=== PATIENT | female | born 1980 | race Caucasian/White ===

== ENCOUNTER 2020-02-02 22:20 | Inpatient (IN) | payer BC, OTHER ==
[~2020-02-02 22:20] MED LIST: Iopamidol-370 76% 500 ML 1 ML ONE
[2020-02-02 23:10] LABS: PTT 26.2 sec (22.9-36.1); Prothrombin Time 13.6 sec (12.0-14.7)
[2020-02-02 23:11] LABS: D-Dimer Test 2.54 *mcg/mL (0.27-0.43)
[2020-02-02 23:13] LABS: BHCG - Serum Negative (NEGATIVE); Pregs Control Background? CLEAR/WHITE (CLR/WHITE); Pregs Control Bar Appear? YES (CONTROL BAR)
[2020-02-02 23:25] LABS: Hemoglobin 10.6 g/dL (12.0-16.0); Mean Corpuscular HGB CONC 32.9 g/dL (32.0-36.0); Mean Corpuscular Hemoglobin 25.7 pg (27.0-31.0); Mean Corpuscular Volume 77.9 fL (78.0-98.0); Mean Platelet Volume 7.7 fL (7.4-10.4); Platelet Count 251 thou/uL (130-400); RBC Distribution Width 13.8 % (11.5-14.5); Red Blood Cell (RBC) Count 4.14 mill/uL (4.20-5.40); White Blood Cell (WBC) Count 11.2 thou/uL (4.8-10.8)
[2020-02-02 23:25] LABS: ALT (SGPT) 17 U/L (8-55); AST (SGOT) 34 U/L (5-34); Albumin 3.7 g/dL (3.5-5.0); Alkaline Phosphatase 121 U/L (40-110); Anion Gap 17 mmol/L (10-20); BUN (Urea Nitrogen) 18 mg/dL (7.0-18.7); Bilirubin, Total 0.4 mg/dL (0.2-1.2); CK (CPK) 363 U/L (29-168); Calc. Creatinine Clearance 0 mL/min (70-130); Calcium 8.2 mg/dL (7.8-10.44); Carbon Dioxide 17 mmol/L (22-29); Chloride 102 mmol/L (98-107); Estimated GFR-MDRD 61; Globulin 3.4 g/dL (2.4-3.5); Glucose 107 mg/dL (70-105); Lipase 18 U/L (8-78); Potassium 4.6 mmol/L (3.5-5.1); Protein, Total 7.1 g/dL (6.0-8.3); Sodium 131 mmol/L (136-145)
[2020-02-02 23:43] LABS: CKMB 6.3 ng/mL (0-6.6)
[2020-02-02 23:51] LABS: Band 33 % (5-11); Lymphocytes 7 % (21-51); MDiff Complete? YES; Monocytes 7 % (0-10); Neutrophil 53 % (42-75)
[2020-02-03] MEDS ORDERED: cefTRIAXone\\ROCEPHIN 2 GM VIAL ONE (00:24)
[2020-02-03] MEDS ORDERED: Aspirin Chewable 81 MG TAB ONE (00:24)
[2020-02-03] MEDS ORDERED: Dexamethasone 10 MG/ML VIAL ONE (00:26)
[2020-02-03] MEDS ORDERED: Azithromycin 500 MG VIAL ONE (00:26)
[2020-02-03] MEDS ORDERED: Sodium Chloride 0.9% 1,000 ML IV SCH (01:00)
[2020-02-03] MEDS ORDERED: Ondansetron PF 4 MG/2 ML Vial IVP PRN (01:00)
[2020-02-03] MEDS ORDERED: Ondansetron ODT 4 MG TAB SL PRN (01:00)
[2020-02-03 03:05] LABS: Troponin I 0.012 ng/mL (< 0.028)
[2020-02-03 05:28] LABS: Troponin I Less than 0.010 ng/mL (< 0.028)
--- NOTE | 2020-02-03 06:20 | RAD ---
PORTABLE CHEST: Date: 02/02/2020 HISTORY: Dyspnea. No comparison. FINDINGS: There is cardiomegaly and mild vascular engorgement. Question hazy infiltrate in the right mid lung/p eriareolar region. No consolidation. No effusion. IMPRESSION: Cardiomegaly and mild vascular engorgement which is prominent for age. There is evidence of hazy infi ltrate in the right mid lung field. POS: AGW
--- NOTE | 2020-02-03 06:29 | CT ---
CTA CHEST: Date: 02/02/2020 Axial tomograms obtained following angio protocol with multiplanar reconstruction and 3D postprocessi ng. INDICATION: Shortness of breath. Cough. Hemoptysis. FINDINGS: Pulmonary arteries show adequate opacification. There is no evidence of pulmonary embolus. Thoracic a kay is unremarkable. Nonspecific mediastinal and hilar adenopathy. Review of the lung zayas show hazy ground-glass infiltrates in the right upper lobe and right middle lobe. There are more confluent dense infiltrates in both posterior lower lobes. Findings are consist ent with diffuse COVID pneumonia. IMPRESSION: 1. No evidence of pulmonary embolus. 2. Bilateral lung infiltrates consistent with COVID pneumonia. POS: AGW
[2020-02-03] MEDS: Ascorbic Acid 500 mg Chewable Tablet PO SCH (07:58)
[2020-02-03] MEDS: Zinc Sulfate 220 MG CAP PO SCH (07:59)
[2020-02-03] MEDS ORDERED: Aspirin 325 MG TAB PO SCH (09:00)
[2020-02-03] MEDS ORDERED: Dexamethasone 4 mg/ml Vial SLOW IVP SCH (09:00)
[2020-02-03] MEDS ORDERED: FLU VACC QS2020-21(6MOS UP)/PF 60 MCG/0.5 ML SYRINGE IM ONE (09:00)
--- NOTE | 2020-02-03 10:46 | PDOC.HHP ---
Hospitalist HPI - History of Present Illness Shortness of breath History of Present Illness: Ms. Dorado is a 39-year-old female with a past medical history of obstructive sleep apnea, hypertension, anxiety/depression, fibromyalgia who presents for fever, cough, and shortness of breath. Patient reports that day prior to admission she noticed headache and sore throat. Morning of admission she developed all over body aches. Later she became short of breath with a dry cough and temperature taken at home of 102.4. Patient also reports that she measured her pulse ox at home which was 84% on room air. She also has coughed up some pink-tinged sputum, however this was after taking red ibuprofen tablets and patient is unsure if this is dye or blood. Patient denies any known Covid exposures, but did just start a new job where one of her coworkers had a "Covid scare". Patient denies nausea or vomiting, but does report 3 episodes of diarrhea today. Patient denies any chest pain, palpitations. Denies any abdominal pain. Denies any numbness, weakness, paresthesias. Denies dizziness, lightheadedness, changes in vision. In emergency room initial vital signs 128/79, 71, 20, 97% on 2 L nasal cannula. EKG showed normal sinus rhythm with LVH. Initial troponin indeterminate at 0.040 BNP 442. Chest x-ray showed a question of a right middle lobe hazy infiltrate and cardiomegaly. D-dimer elevated at 2.54. CTA was done which was negative for any pulmonary embolism, but did show bilateral infiltrates and groundglass opacities consistent with Covid pneumonia. BUN/CR 18/1.00. White blood cell count 11.2. H/H 10.6/32.3. Sodium 131, potassium 4.6. Patient received aspirin, Decadron, ceftriaxone, azithromycin, 1 L of normal saline. Hospitalist ROS - Review of Systems Constitutional: reports: fever, chills, malaise, other (Body aches) Eyes: denies: pain, vision change, conjunctivae inflammation, eyelid inflammation, redness, other ENT: reports: nose congestion, throat pain Respiratory: reports: cough, dry, shortness of breath, hemoptysis Cardiovascular: denies: chest pain, palpitations, orthopnea, paroxysmal noc. dy spnea, edema, light headedness, other Gastrointestinal: reports: diarrhea. denies: nausea, vomiting, abdominal pain, constipation, melena, hematochezia, other Genitourinary: denies: dysuria, frequency, incontinence, hematuria, retention, other Musculoskeletal: reports: other (Body aches). denies: neck pain, shoulder pain, arm pain, back pain, hand pain, leg pain, foot pain Skin: denies: rash, lesions, zahira, bruising, other Neurological: denies: weakness, numbness, incoordination, change in speech, confusion, seizures, other - Medication Medications: Home medications include Pantoprazole BuSpar Doxepin Venlafaxine Seroquel Metoprolol Gabapentin No known allergies Hospitalist History - Past Medical History Other Medical History: Past medical history includes Obstructive sleep apnea Hypertension Anxiety/depression Fibromyalgia - Past Surgical History Other Surgical History: Past surgical history includes x3 LAP-BAND Gastric bypass Breast reduction\\ Circumferential tummy tuck Appendectomy Tubal ligation - Family History Other Family History: Denies family history of heart disease, cancer, diabetes - Social History Smoking Status: Never smoker Alcohol: reports: None Drugs: reports: none Living Situation: With Family Activity level: independent ambulation - Exam General Appearance: NAD, awake alert Eye: PERRL, anicteric sclera ENT: normocephalic atraumatic, no oropharyngeal lesions, moist mucosa Neck: supple, symmetric, no JVD, no thyromegaly, no lymphadenopathy, no carotid bruit Heart: RRR, no murmur, no gallops, no rubs, normal peripheral pulses Respiratory: normal chest expansion, no tachypnea, rhonchi Gastrointestinal: soft, non-tender, non-distended, normal bowel sounds, no palpable masses, no hepatomegaly, no splenomegaly, no bruit Extremities: no cyanosis, no clubbing, no edema Skin: normal turgor, no lesions, no rashes Neurological: normal sensation to touch, no weakness, no focal deficits, no new deficit Musculoskeletal: normal tone, normal strength, no muscle wasting Psychiatric: normal affect, normal behavior, A&O x 3 Hospitalist Results - Labs Result Diagrams: 02/02/20 22:44 02/02/20 22:43 Lab results: WBC 11.2 thou/uL (4.8-10.8) H 02/02/20 22:44 Hgb 10.6 g/dL (12.0-16.0) L 02/02/20 22:44 Hct 32.3 % (36.0-47.0) L 02/02/20 22:44 MCV 77.9 fL (78.0-98.0) L 02/02/20 22:44 Plt Count 251 thou/uL (130-400) 02/02/20 22:44 Band Neuts % (Manual) 33 % (5-11) H 02/02/20 22:44 Sodium 131 mmol/L (136-145) L 02/02/20 22:43 Potassium 4.6 mmol/L (3.5-5.1) 02/02/20 22:43 Chloride 102 mmol/L (98-107) 02/02/20 22:43 Carbon Dioxide 17 mmol/L (22-29) L 02/02/20 22:43 BUN 18 mg/dL (7.0-18.7) 02/02/20 22:43 Creatinine 1.00 mg/dL (0.6-1.1) 02/02/20 22:43 Glucose 107 mg/dL (70-105) H 02/02/20 22:43 Calcium 8.2 mg/dL (7.8-10.44) 02/02/20 22:43 Total Bilirubin 0.4 mg/dL (0.2-1.2) 02/02/20 22:43 AST 34 U/L (5-34) 02/02/20 22:43 ALT 17 U/L (8-55) 02/02/20 22:43 Alkaline Phosphatase 121 U/L (40-110) H 02/02/20 22:43 Creatine Kinase 363 U/L (29-168) H 02/02/20 22:43 CK-MB (CK-2) 6.3 ng/mL (0-6.6) 02/02/20 22:43 Troponin I Less than 0.010 ng/mL (< 0.028) 02/03/20 04:42 B-Natriuretic Peptide 442.0 pg/mL (0-100) H 02/02/20 22:43 Serum Total Protein 7.1 g/dL (6.0-8.3) 02/02/20 22:43 Albumin 3.7 g/dL (3.5-5.0) 02/02/20 22:43 Lipase 18 U/L (8-78) 02/02/20 22:43 Hospitalist H&P A/P - Plan Plan: Pneumonia 39-year-old female with 2 days of cough, fevers, worsening shortness of breath found to have bilateral groundglass opacities on CT scan consistent with COVID- 19 pneumonia. Patient hypoxic to 84% on room air at home. Now saturating 97% on 2 L. Febrile to 102.9. WBC 11.2. D-dimer was elevated to 2.54, CTA showed no evidence of pulmonary embolism, but did show findings consistent with COVID- 19 pneumonia. Covid test pending. Of note patient also reports episode of bloody sputum, however this was after taking red ibuprofen and patient unsure if dye versus blood. In the ED patient received Decadron, ceftriaxone, azithromycin. High suspicion for COVID-19 pneumonia. Plan Covid pending Continue Decadron Continue CAP coverage with ceftriaxone, azithromycin Trend inflammatory markers as needed Robitussin as needed cough Supplemental oxygen, continuous pulse ox Tylenol as needed fever, body aches We will consider remdesivir, if PCR testing positive Hemoptysis Patient reports episode of hemoptysis, however this is after taking red ibuprofen tablets and patient is unsure if this was just her coughing of the dye versus blood. CT a negative for pulmonary embolism. On EKG LVH noted, and ch est x-ray also showed cardiomegaly. Patient does not appear to be fluid overloaded on exam. Suspect likely from dye vs inflammation 2/2 COVID-19 pneumonia however will pursue echocardiogram to evaluate for congestive heart failure. Patient denies any travel outside the country. Plan Quantiferon test Echocardiogram Continuous pulse ox monitoring, supplemental oxygen Elevated troponin Initial troponin indeterminate at 0.040. Repeat troponins 0.012, 0.010. Patient denies chest pain. EKG with no ischemic changes. Likely small troponin leak in setting of infection, also commonly seen in COVID-19 pneumonia. We will continue to monitor for symptoms and keep on telemetry. Plan Monitor for symptoms Telemetry ANGEL We will continue home CPAP machine at night. Hypertension We will continue home metoprolol Anxiety/depression History of anxiety depression on multiple medications. Patient currently denies SI/HI. We will continue home BuSpar, doxepin, venlafaxine, Seroquel, gabapenti n. Plan Continue BuSpar, doxepin Continue venlafaxine, Seroquel GERD Continue home pantoprazole DVT prophylaxis Lovejcx Full code, MDM patient's Case discussed with attending physician Dr. Lindsay
[2020-02-03] MEDS ORDERED: Acetaminophen 325 MG TAB PO PRN (11:28)
[2020-02-03 13:01] LABS: SARS-CoV-2 MS2 Positive; SARS-CoV-2 N Gene Negative; SARS-CoV-2 S Gene Negative; SARS-CoV-2 by NAA Not Detected (NotDetected); SARS-CoV-2 orf1ab Negative
[2020-02-03 18:57] LABS: SARS-CoV-2 IgG Ab Non-Reactive (NonReactive); SARS-CoV-2 IgG Index 0.01 S/CO (< 1.40)
[2020-02-03] MEDS: Gabapentin 400 MG CAP PO SCH (20:55)
[2020-02-03] MEDS: Doxepin HCl 25 MG CAP PO SCH (20:56)
[2020-02-03] MEDS: busPIRone HCl 10 MG TAB PO SCH (20:56)
[2020-02-03] MEDS: Venlafaxine HCl XR 75 MG CAP PO SCH (20:56)
[2020-02-04 04:52] LABS: #Lymphocytes 1.2 thou/uL (1.20-3.40); #Monocytes 0.7 thou/uL (0.11-0.59); #Neutrophils 13.8 thou/uL (1.40-6.50); %Lymphocytes 7.8 % (21.0-51.0); %Monocytes 4.2 % (0.0-10.0); Hemoglobin 9.4 g/dL (12.0-16.0); Mean Corpuscular HGB CONC 32.4 g/dL (32.0-36.0); Mean Corpuscular Hemoglobin 25.8 pg (27.0-31.0); Mean Corpuscular Volume 79.5 fL (78.0-98.0); Mean Platelet Volume 7.8 fL (7.4-10.4); Platelet Count 253 thou/uL (130-400); RBC Distribution Width 14.3 % (11.5-14.5); Red Blood Cell (RBC) Count 3.64 mill/uL (4.20-5.40); White Blood Cell (WBC) Count 15.7 thou/uL (4.8-10.8)
[2020-02-04 05:18] LABS: Anion Gap 10 mmol/L (10-20); BUN (Urea Nitrogen) 12 mg/dL (7.0-18.7); Calc. Creatinine Clearance 225 mL/min (70-130); Calcium 8.2 mg/dL (7.8-10.44); Carbon Dioxide 23 mmol/L (22-29); Chloride 109 mmol/L (98-107); Estimated GFR-MDRD Greater than 90; Glucose 120 mg/dL (70-105); Potassium 3.8 mmol/L (3.5-5.1); Sodium 138 mmol/L (136-145)
[2020-02-04] MEDS: Enoxaparin Sodium 40 MG/0.4 ML SYRINGE SC SCH (07:49)
[2020-02-04] MEDS: Pantoprazole 40 MG GRANULES PACKET PO SCH (07:50)
[2020-02-04] MEDS: busPIRone HCl 10 MG TAB PO SCH ×2 (07:51→20:38)
[2020-02-04] MEDS: Gabapentin 400 MG CAP PO SCH ×3 (07:51→20:37)
[2020-02-04] MEDS: Ascorbic Acid 500 mg Chewable Tablet PO SCH (07:52)
[2020-02-04] MEDS: Zinc Sulfate 220 MG CAP PO SCH (07:52)
[2020-02-04] MEDS: Dexamethasone 4 MG TAB PO SCH (07:52)
--- NOTE | 2020-02-04 08:44 | PDOC.HOSPP ---
- Subjective Encounter Date: 02/04/20 Encounter Time: 07:00 Subjective: No overnight events. Patient reports that her breathing feels the same as yesterday. Still on 2 L nasal cannula. Patient does report however that she has had additional episodes of hemoptysis. She describes the sputum as white and streaked pink to red. She denies any chest pain, palpitations, dizziness. Denies any changes in vision, numbness/weakness. Is using CPAP machine at night comfortably. Chart and medications reviewed - Objective Vital Signs & Weight: Vital Signs (12 hours) Temp Pulse Resp BP Pulse Ox 02/04/20 08:05 97.7 F 69 20 124/66 100 02/04/20 04:35 97.8 F 73 20 125/66 95 02/04/20 01:56 98 Weight Weight 283 lb 12.8 oz I&O: 02/03/20 02/04/20 02/05/20 06:59 06:59 06:59 Intake Total 0 Balance 192 Result Diagrams: 02/04/20 04:23 02/04/20 04:23 Hospitalist ROS - Review of Systems Constitutional: reports: fever, weakness, malaise Eyes: denies: vision change ENT: reports: nose congestion, throat pain Respiratory: reports: cough, dry, shortness of breath, hemoptysis Cardiovascular: denies: chest pain, palpitations, orthopnea, light headedness Gastrointestinal: denies: nausea, vomiting, abdominal pain, diarrhea Genitourinary: denies: dysuria Skin: denies: rash, lesions Neurological: denies: weakness, numbness - Medication Medications: Active Medications Generic Name Dose Route Start Last Admin Trade Name David PRN Reason Stop Dose Admin Acetaminophen 650 mg 02/03/20 11:28 02/03/20 15:30 Acetaminophen 325 Mg Tab PO 650 mg Q4H PRN Administration Headache/Fever/Mild Pain (1-3) Ascorbic Acid 1,000 mg 02/03/20 09:00 02/04/20 07:52 Ascorbic Acid 500 Mg Chewable Tablet PO 1,000 mg DAILY RENETTA Administration Buspirone HCl 20 mg 02/03/20 21:00 02/04/20 07:51 Buspirone Hcl 10 Mg Tab PO 20 mg BID RENETTA Administration Dexamethasone 6 mg 02/04/20 08:00 02/04/20 07:52 Dexamethasone 4 Mg Tab PO 6 mg QAM-WM RENETTA Administration Doxepin HCl 150 mg 02/03/20 21:00 02/03/20 20:56 Doxepin Hcl 25 Mg Cap PO 150 mg HS RENETTA Administration Enoxaparin Sodium 40 mg 02/04/20 09:00 02/04/20 07:49 Enoxaparin Sodium 40 Mg/0.4 Ml Syringe SC 40 mg 0900 RENETTA Administration Gabapentin 1,200 mg 02/03/20 21:00 02/04/20 07:51 Gabapentin 400 Mg Cap PO 1,200 mg TID RENETTA Administration Metoprolol Succinate 100 mg 02/03/20 21:00 02/03/20 20:56 Metoprolol Succinate Xl 100 Mg Tab PO 100 mg HS RENETTA Administration Pantoprazole Sodium 40 mg 02/04/20 09:00 02/04/20 07:50 Pantoprazole 40 Mg Granules Packet PO 40 mg DAILY RENETTA Administration Quetiapine Fumarate 200 mg 02/03/20 21:00 02/03/20 20:56 Quetiapine Fumarate 200 Mg Tab PO 200 mg HS RENETTA Administration Sodium Chloride 10 ml 02/03/20 09:00 02/04/20 07:53 Flush - Normal Saline 10 Ml Syringe IVF 10 ml Q12HR RENETTA Administration Venlafaxine HCl 75 mg 02/03/20 21:00 02/03/20 20:56 Venlafaxine Hcl Xr 75 Mg Cap PO 75 mg TID RENETTA Administration Zinc Sulfate 220 mg 02/03/20 09:00 02/04/20 07:52 Zinc Sulfate 220 Mg Cap PO 220 mg DAILY RENETTA Administration - Exam General Appearance: NAD, awake alert Eye: anicteric sclera ENT: normocephalic atraumatic, no oropharyngeal lesions Neck: supple, symmetric, no JVD Heart: RRR, no murmur, no gallops, no rubs, normal peripheral pulses Respiratory: no tachypnea, rhonchi Gastrointestinal: soft, non-tender, non-distended, normal bowel sounds, no palpable masses, no hepatomegaly, no splenomegaly, no bruit Extremities: no cyanosis, no clubbing, no edema Skin: normal turgor, no lesions, no rashes Neurological: normal sensation to touch, no weakness, no focal deficits Musculoskeletal: normal tone, normal strength, no muscle wasting Psychiatric: normal affect, normal behavior, A&O x 3 Hosp A/P - Plan Pneumonia 39-year-old female with 2 days of cough, fevers, worsening shortness of breath found to have bilateral groundglass opacities on CT scan consistent with COVID- 19 pneumonia. Patient hypoxic to 84% on room air at home. Now saturating 97% on 2 L. Febrile to 102.9. WBC 11.2. D-dimer was elevated to 2.54, CTA showed no evidence of pulmonary embolism, but did show findings consistent with COVID- 19 pneumonia. Covid test pending. Of note patient also reports episode of bloody sputum, however this was after taking red ibuprofen and patient unsure if dye versus blood. In the ED patient received Decadron, ceftriaxone, azithromycin. High suspicion for COVID-19 pneumonia, despite initial COVID swab being negative. Will repeat swab. On 02/03, patient reports repeated episodes of hemoptysis, WBC increasing to 15.7. Will continue CAP coverage and obtain sputum culture. Plan Repeat COVID Continue Decadron Continue CAP coverage with ceftriaxone, azithromycin Trend inflammatory markers as needed Robitussin as needed cough Supplemental oxygen, continuous pulse ox Tylenol as needed fever, body aches -Consider remdesivir if COVID testing positive -ID consult, recs appreciated Hemoptysis Patient reports episode of hemoptysis initially patient thought to be from red dyed ibuprofen tablets, however has had repeated episodes since admission. CT a negative for pulmonary embolism. On EKG LVH noted, and chest x-ray also showed cardiomegaly. Patient does not appear to be fluid overloaded on exam. Suspect likely inflammation 2/2 COVID-19 pneumonia however will pursue echocardiogram to evaluate for congestive heart failure. Patient denies any travel outside the country, but will send for TB quaniferon testing. Plan Quantiferon test pending Echocardiogram Continuous pulse ox monitoring, supplemental oxygen Elevated troponin Initial troponin indeterminate at 0.040. Repeat troponins 0.012, 0.010. Patient denies chest pain. EKG with no ischemic changes. Likely small troponin leak in setting of infection, also commonly seenas an inflammatory marker in COVID-19 pneumonia. We will continue to monitor for symptoms and keep on telemetry. Plan Monitor for symptoms Telemetry ANGEL We will continue home CPAP machine at night. Hypertension We will continue home metoprolol. Anxiety/depression History of anxiety depression on multiple medications. Patient currently denies SI/HI. We will continue home BuSpar, doxepin, venlafaxine, Seroquel, gabapentin. Plan Continue BuSpar, doxepin Continue venlafaxine, Seroquel GERD Continue home pantoprazole. DVT prophylaxis Lovenox Full code, MDM patient's Case discussed with attending physician Dr. Lindsay
[2020-02-04] MEDS: Venlafaxine HCl XR 75 MG CAP PO SCH ×3 (08:48→20:37)
[2020-02-04] MEDS: Azithromycin 250 MG TAB PO SCH (08:48)
[2020-02-04] MEDS: cefTRIAXone\\ROCEPHIN 1 GM in Sodium Chloride 0.9% 100 ML IVPB SCH (08:48)
[2020-02-04] MEDS ORDERED: Azithromycin 200 MG/5 ML Oral Suspension PO SCH (09:00)
[2020-02-04] MEDS: Guaifenesin DM 100-10/5 ML UDCUP PO PRN (12:08)
[2020-02-04 17:53] LABS: SARS-CoV-2 MS2 Positive; SARS-CoV-2 N Gene Negative; SARS-CoV-2 S Gene Negative; SARS-CoV-2 by NAA Not Detected (NotDetected); SARS-CoV-2 orf1ab Negative
[2020-02-04] MEDS: Doxepin HCl 25 MG CAP PO SCH (20:37)
[2020-02-05 05:56] LABS: #Lymphocytes 2.9 thou/uL (1.20-3.40); #Monocytes 0.7 thou/uL (0.11-0.59); #Neutrophils 12.3 thou/uL (1.40-6.50); %Basophils 0.2 % (0.0-1.0); %Eosinophils 0.1 % (0.0-10.0); %Lymphocytes 18.3 % (21.0-51.0); %Monocytes 4.6 % (0.0-10.0); %Neutrophils 76.8 % (42.0-75.0); Hemoglobin 9.4 g/dL (12.0-16.0); Mean Corpuscular HGB CONC 32.7 g/dL (32.0-36.0); Mean Corpuscular Hemoglobin 25.9 pg (27.0-31.0); Mean Corpuscular Volume 79.1 fL (78.0-98.0); Mean Platelet Volume 7.6 fL (7.4-10.4); Platelet Count 305 thou/uL (130-400); RBC Distribution Width 14.6 % (11.5-14.5); Red Blood Cell (RBC) Count 3.64 mill/uL (4.20-5.40)
[2020-02-05 06:23] LABS: Anion Gap 14 mmol/L (10-20); BUN (Urea Nitrogen) 15 mg/dL (7.0-18.7); Calc. Creatinine Clearance 219 mL/min (70-130); Carbon Dioxide 21 mmol/L (22-29); Chloride 109 mmol/L (98-107); Estimated GFR-MDRD Greater than 90; Glucose 118 mg/dL (70-105); Potassium 3.3 mmol/L (3.5-5.1); Sodium 141 mmol/L (136-145)
[2020-02-05] MEDS: busPIRone HCl 10 MG TAB PO SCH ×2 (07:59→20:45)
[2020-02-05] MEDS: Gabapentin 400 MG CAP PO SCH ×3 (08:00→20:42)
[2020-02-05] MEDS: Dexamethasone 4 MG TAB PO SCH (08:00)
[2020-02-05] MEDS: Zinc Sulfate 220 MG CAP PO SCH (08:01)
[2020-02-05] MEDS: Venlafaxine HCl XR 75 MG CAP PO SCH ×3 (08:01→20:45)
[2020-02-05] MEDS: Pantoprazole 40 MG GRANULES PACKET PO SCH (08:01)
[2020-02-05] MEDS: Enoxaparin Sodium 40 MG/0.4 ML SYRINGE SC SCH (08:01)
[2020-02-05] MEDS: Azithromycin 250 MG TAB PO SCH (08:01)
[2020-02-05] MEDS: Ascorbic Acid 500 mg Chewable Tablet PO SCH (08:01)
[2020-02-05] MEDS: Guaifenesin DM 100-10/5 ML UDCUP PO PRN (09:11)
[2020-02-05 12:31] VITALS: BMI 49.6
[2020-02-05] MEDS: cefTRIAXone\\ROCEPHIN 1 GM in Sodium Chloride 0.9% 100 ML IVPB SCH (13:23)
--- NOTE | 2020-02-05 15:04 | PDOC.HOSPP ---
- Subjective Encounter Date: 02/05/20 Encounter Time: 15:02 Subjective: This is a 39-year-old woman who is hospitalized with respiratory distress secondary to pneumonia. She apparently had an exposure at work to someone who had a "Covid scare". However her Covid screening here actually was negative but she does have pneumonia on her imaging studies. She is on empiric IV antibiotics and routine cultures were collected and are pending. - Objective Vital Signs & Weight: Vital Signs (12 hours) Temp Pulse Resp BP Pulse Ox 02/05/20 14:02 70 20 127/61 97 02/05/20 08:00 98.1 F 73 20 108/60 97 02/05/20 04:29 97 02/05/20 04:10 98.2 F 61 20 131/62 97 Weight Admit Weight 283 lb 12.8 oz Weight 289 lb 1.6 oz I&O: 02/04/20 02/05/20 02/06/20 06:59 06:59 05:59 Intake Total 1919 2019 Balance 1919 2019 Result Diagrams: 02/05/20 05:39 02/05/20 05:39 Radiology Reviewed by me: Yes EKG Reviewed by me: Yes Hospitalist ROS - Review of Systems Constitutional: reports: weakness, malaise Respiratory: reports: cough, dry, hemoptysis, SOB with excertion, wheezing Gastrointestinal: reports: nausea Neurological: reports: weakness - Medication Medications: Active Medications Generic Name Dose Route Start Last Admin Trade Name Freq PRN Reason Stop Dose Admin Acetaminophen 650 mg 02/03/20 11:28 02/03/20 15:30 Acetaminophen 325 Mg Tab PO 650 mg Q4H PRN Administration Headache/Fever/Mild Pain (1-3) Ascorbic Acid 1,000 mg 02/03/20 09:00 02/05/20 08:01 Ascorbic Acid 500 Mg Chewable Tablet PO 1,000 mg DAILY RENETTA Administration Azithromycin 500 mg 02/04/20 09:00 02/05/20 08:01 Azithromycin 250 Mg Tab PO 500 mg DAILY RENETTA Administration Buspirone HCl 20 mg 02/03/20 21:00 02/05/20 07:59 Buspirone Hcl 10 Mg Tab PO 20 mg BID RENETTA Administration Dexamethasone 6 mg 02/04/20 08:00 02/05/20 08:00 Dexamethasone 4 Mg Tab PO 6 mg QAM-WM RENETTA Administration Doxepin HCl 150 mg 02/03/20 21:00 02/04/20 20:37 Doxepin Hcl 25 Mg Cap PO 150 mg HS RENETTA Administration Enoxaparin Sodium 40 mg 02/04/20 09:00 02/05/20 08:01 Enoxaparin Sodium 40 Mg/0.4 Ml Syringe SC 40 mg 0900 RENETTA Administration Gabapentin 1,200 mg 02/03/20 21:00 02/05/20 13:22 Gabapentin 400 Mg Cap PO 1,200 mg TID RENETTA Administration Guaifenesin/Dextromethorphan 15 ml 02/03/20 11:34 02/05/20 09:11 Guaifenesin Dm 100-10/5 Ml Udcup PO 15 ml Q4H PRN Administration Cough Ceftriaxone Sodium 1 gm/ 100 mls @ 200 mls/hr 02/04/20 09:00 02/05/20 13:23 Sodium Chloride IVPB 100 mls Q24HR RENETTA Administration Metoprolol Succinate 100 mg 02/03/20 21:00 02/04/20 20:38 Metoprolol Succinate Xl 100 Mg Tab PO 100 mg HS RENETTA Administration Pantoprazole Sodium 40 mg 02/04/20 09:00 02/05/20 08:01 Pantoprazole 40 Mg Granules Packet PO 40 mg DAILY RENETTA Administration Quetiapine Fumarate 200 mg 02/03/20 21:00 02/04/20 20:38 Quetiapine Fumarate 200 Mg Tab PO 200 mg HS RENETTA Administration Sodium Chloride 10 ml 02/03/20 09:00 02/05/20 08:01 Flush - Normal Saline 10 Ml Syringe IVF 10 ml Q12HR RENETTA Administration Venlafaxine HCl 75 mg 02/03/20 21:00 02/05/20 13:22 Venlafaxine Hcl Xr 75 Mg Cap PO 75 mg TID RENETTA Administration Zinc Sulfate 220 mg 02/03/20 09:00 02/05/20 08:01 Zinc Sulfate 220 Mg Cap PO 220 mg DAILY RENETTA Administration - Exam General Appearance: awake alert Neck: supple, symmetric, no thyromegaly, no lymphadenopathy Heart: RRR, no murmur Respiratory: CTAB, no wheezes, no rales, no ronchi, normal chest expansion, wheezes Gastrointestinal: soft, non-tender, non-distended, normal bowel sounds, no palpable masses, no hepatomegaly Psychiatric: normal affect, normal behavior, A&O x 3, oriented to person, oriented to place, oriented to time Hosp A/P (1) Acute respiratory failure with hypoxia Code(s): J96.01 - ACUTE RESPIRATORY FAILURE WITH HYPOXIA Status: Acute (2) Pneumonia Code(s): J18.9 - PNEUMONIA, UNSPECIFIED ORGANISM Status: Acute Qualifiers: Pneumonia type: due to unspecified organism Laterality: bilateral Lung location: lower lobe of lung Qualified Code(s): J18.9 - Pneumonia, unspecified organism - Plan old records reviewed/req, continue antibiotics, PT/OT, respiratory therapy, incentive spirometry, DVT proph w/lovenox #1. Acute respiratory failure with hypoxia. Likely related to the pneumonia. Continue O2 supplementation and wean off as tolerated. 2. Pneumonia. Suspect gram-positive bacteria. COVID-19 cannot be excluded even though her PCR test was negative. I will continue antibiotic for now. Follow-up on active cultures. 3. Obstructive sleep apnea. She utilizes her home CPAP. 4. Morbid obesity. Her BMI is 49.6. 5. Hypokalemia. This will be replaced. 6. Anemia. Likely chronic disease. No need for transfusion right now.
[2020-02-05] MEDS: Doxepin HCl 25 MG CAP PO SCH (20:45)
[2020-02-06] MEDS: Guaifenesin DM 100-10/5 ML UDCUP PO PRN (03:43)
[2020-02-06 05:58] LABS: #Eosinphils 0.1 thou/uL (0.0-0.7); #Lymphocytes 3.3 thou/uL (1.20-3.40); #Monocytes 0.6 thou/uL (0.11-0.59); %Basophils 0.1 % (0.0-1.0); %Eosinophils 0.5 % (0.0-10.0); %Lymphocytes 30.4 % (21.0-51.0); %Monocytes 5.4 % (0.0-10.0); %Neutrophils 63.6 % (42.0-75.0); Hemoglobin 8.8 g/dL (12.0-16.0); Mean Corpuscular HGB CONC 32.7 g/dL (32.0-36.0); Mean Corpuscular Hemoglobin 26.2 pg (27.0-31.0); Mean Platelet Volume 7.6 fL (7.4-10.4); Platelet Count 261 thou/uL (130-400); RBC Distribution Width 14.4 % (11.5-14.5); Red Blood Cell (RBC) Count 3.37 mill/uL (4.20-5.40); White Blood Cell (WBC) Count 10.9 thou/uL (4.8-10.8)
[2020-02-06 06:18] LABS: Anion Gap 13 mmol/L (10-20); BUN (Urea Nitrogen) 16 mg/dL (7.0-18.7); Calc. Creatinine Clearance 202 mL/min (70-130); Calcium 7.9 mg/dL (7.8-10.44); Carbon Dioxide 23 mmol/L (22-29); Chloride 108 mmol/L (98-107); Estimated GFR-MDRD 84; Glucose 107 mg/dL (70-105); Potassium 3.4 mmol/L (3.5-5.1); Sodium 141 mmol/L (136-145)
[2020-02-06] MEDS: Dexamethasone 4 MG TAB PO SCH (08:08)
[2020-02-06] MEDS: Pantoprazole 40 MG GRANULES PACKET PO SCH (08:08)
[2020-02-06] MEDS: Zinc Sulfate 220 MG CAP PO SCH (08:08)
[2020-02-06] MEDS: Enoxaparin Sodium 40 MG/0.4 ML SYRINGE SC SCH (08:08)
[2020-02-06] MEDS: Azithromycin 250 MG TAB PO SCH (08:09)
[2020-02-06] MEDS: busPIRone HCl 10 MG TAB PO SCH ×2 (08:09→22:01)
[2020-02-06] MEDS: Gabapentin 400 MG CAP PO SCH ×3 (08:09→22:01)
[2020-02-06] MEDS: Venlafaxine HCl XR 75 MG CAP PO SCH ×3 (08:10→22:03)
[2020-02-06] MEDS: Ascorbic Acid 500 mg Chewable Tablet PO SCH (08:10)
[2020-02-06] MEDS: cefTRIAXone\\ROCEPHIN 1 GM in Sodium Chloride 0.9% 100 ML IVPB SCH (08:16)
--- NOTE | 2020-02-06 10:52 | PDOC.HOSPP ---
- Subjective Encounter Date: 02/06/20 Encounter Time: 10:51 Subjective: Clinically she is doing better today. Lab work seems better as well. She does still have cough but not bloody. Sputum culture has not shown any growth. We will continue Rocephin and Zithromax in for 2 more days. Anticipate home hopefully within the next 48 hours. - Objective Vital Signs & Weight: Vital Signs (12 hours) Temp Pulse Resp BP Pulse Ox 02/06/20 08:00 98 F 62 20 136/70 94 L 02/06/20 04:00 98.7 F 56 L 22 H 152/66 H 96 Weight Admit Weight 283 lb 12.8 oz Weight 289 lb I&O: 02/05/20 02/06/20 02/07/20 07:59 06:59 06:59 Intake Total Balance Result Diagrams: 02/06/20 05:17 02/06/20 05:17 Radiology Reviewed by me: Yes EKG Reviewed by me: Yes Hospitalist ROS - Review of Systems Constitutional: reports: chills, weakness, malaise Respiratory: reports: cough, SOB with excertion, sputum Gastrointestinal: reports: nausea - Medication Medications: Active Medications Generic Name Dose Route Start Last Admin Trade Name Freq PRN Reason Stop Dose Admin Acetaminophen 650 mg 02/03/20 11:28 02/03/20 15:30 Acetaminophen 325 Mg Tab PO 650 mg Q4H PRN Administration Headache/Fever/Mild Pain (1-3) Ascorbic Acid 1,000 mg 02/03/20 09:00 02/06/20 08:10 Ascorbic Acid 500 Mg Chewable Tablet PO 1,000 mg DAILY RENETTA Administration Azithromycin 500 mg 02/04/20 09:00 02/06/20 08:09 Azithromycin 250 Mg Tab PO 500 mg DAILY RENETTA Administration Buspirone HCl 20 mg 02/03/20 21:00 02/06/20 08:09 Buspirone Hcl 10 Mg Tab PO 20 mg BID RENETTA Administration Dexamethasone 6 mg 02/04/20 08:00 02/06/20 08:08 Dexamethasone 4 Mg Tab PO 6 mg QAM-WM RENETTA Administration Doxepin HCl 150 mg 02/03/20 21:00 02/05/20 20:45 Doxepin Hcl 25 Mg Cap PO 150 mg HS RENETTA Administration Enoxaparin Sodium 40 mg 02/04/20 09:00 02/06/20 08:08 Enoxaparin Sodium 40 Mg/0.4 Ml Syringe SC 40 mg 0900 RENETTA Administration Gabapentin 1,200 mg 02/03/20 21:00 02/06/20 08:09 Gabapentin 400 Mg Cap PO 1,200 mg TID RENETTA Administration Guaifenesin/Dextromethorphan 15 ml 02/03/20 11:34 02/06/20 03:43 Guaifenesin Dm 100-10/5 Ml Udcup PO 15 ml Q4H PRN Administration Cough Ceftriaxone Sodium 1 gm/ 100 mls @ 200 mls/hr 02/04/20 09:00 02/06/20 08:16 Sodium Chloride IVPB 100 mls Q24HR RENETTA Administration Metoprolol Succinate 100 mg 02/03/20 21:00 02/05/20 20:46 Metoprolol Succinate Xl 100 Mg Tab PO 100 mg HS RENETTA Administration Pantoprazole Sodium 40 mg 02/04/20 09:00 02/06/20 08:08 Pantoprazole 40 Mg Granules Packet PO 40 mg DAILY RENETTA Administration Quetiapine Fumarate 200 mg 02/03/20 21:00 02/05/20 20:43 Quetiapine Fumarate 200 Mg Tab PO 200 mg HS RENETTA Administration Sodium Chloride 10 ml 02/03/20 09:00 02/06/20 08:08 Flush - Normal Saline 10 Ml Syringe IVF 10 ml Q12HR RENETTA Administration Venlafaxine HCl 75 mg 02/03/20 21:00 02/06/20 08:10 Venlafaxine Hcl Xr 75 Mg Cap PO 75 mg TID RENETTA Administration Zinc Sulfate 220 mg 02/03/20 09:00 02/06/20 08:08 Zinc Sulfate 220 Mg Cap PO 220 mg DAILY RENETTA Administration - Exam Eye: PERRL Neck: supple, symmetric, no JVD Heart: RRR, no murmur Respiratory: no rales, normal chest expansion, no tachypnea, wheezes Gastrointestinal: soft, non-tender, non-distended, normal bowel sounds, no palpable masses Neurological: cranial nerve grossly intact, normal sensation to touch, no weakness, no focal deficits Musculoskeletal: normal tone, no muscle wasting Psychiatric: normal affect, normal behavior, A&O x 3, oriented to person Hosp A/P (1) Acute respiratory failure with hypoxia Code(s): J96.01 - ACUTE RESPIRATORY FAILURE WITH HYPOXIA Status: Acute (2) Pneumonia Code(s): J18.9 - PNEUMONIA, UNSPECIFIED ORGANISM Status: Acute Qualifiers: Pneumonia type: due to other aerobic Gram-negative bacteria Laterality: bilateral Lung location: lower lobe of lung Qualified Code(s): J15.6 - Pneumonia due to other Gram-negative bacteria - Plan old records reviewed/req, continue antibiotics, PT/OT, DVT proph w/lovenox #1. Acute respiratory failure with hypoxia. Likely related to the pneumonia. Continue O2 supplementation and wean off as tolerated. 02/06/2020. Continue O2 supplementation. 2. Pneumonia. Suspect gram-positive bacteria. COVID-19 cannot be excluded even though her PCR test was negative. I will continue antibiotic for now. Follow-up on active cultures. 02/06/2020. Cultures are pending. Continue antibiotic as above. 3. Obstructive sleep apnea. She utilizes her home CPAP. 4. Morbid obesity. Her BMI is 49.6. 5. Hypokalemia. This will be replaced. 6. Anemia. Likely chronic disease. No need for transfusion right now.
[2020-02-06] MEDS ORDERED: Aluminum & Magnesium Hydroxide 60 ML, Lidocaine 2% Viscous Solution 30 ML, diphenhydrAM... SSW PRN (14:20)
[2020-02-06] MEDS ORDERED: Acetaminophen/Codeine 30-300mg Tablet PO PRN (16:10)
[2020-02-06 16:37] LABS: QuantiFERON-TB Gold Plus Indeterminate (Negative)
--- NOTE | 2020-02-06 20:33 | CON ---
DATE OF CONSULTATION: 02/06/2020 REASON FOR CONSULTATION: Pneumonia. HISTORY OF PRESENT ILLNESS: A 39-year-old, used to work at [employer] in the 3rd floor, but now is in assisted living for the past 4 to 5 days. She used to work elsewhere before that and she is going to school and was well until guess 2 days before admission when she developed respiratory symptoms with hypoxemia and dyspnea, cough, headaches, and some hemoptysis. Temperature 102.4. She checked her oximetry at home and was 84% on room air. She may have had some hives as well. No exposure to any patient with SARS-CoV-2 that she can remember. On arrival, she was 98/57, heart rate 81, respirations 22, temperature 97.9, O2 saturations were 90% on room air. Did not appear in distress. Pain-free, alert, oriented. She had mild respiratory distress. Crackles in the left lower lobe and left upper lobe as well. Right now, she is feeling quite well, room air O2 saturations at 99%. No headaches. No visual symptoms, sore throat, odynophagia, dysphagia. Coughing is less. No hemoptysis. No chest pain. No abdominal pain or diarrhea. No genitourinary symptoms. No joint symptoms. PAST MEDICAL HISTORY: Obesity, sleep apnea, hypertension, fibromyalgia. PAST SURGICAL HISTORY: , appendectomy, tummy tuck, lap band, gastric bypass, breast reduction, and tubal ligation. 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 No drug use. No smoking. ALLERGIES: NONE. MEDICATIONS: Had been on doxepin, venlafaxine, gabapentin, metoprolol, Seroquel, pantoprazole, and BuSpar. PHYSICAL EXAMINATION: VITAL SIGNS: She has been afebrile since admission. She has been here since the . BP 120/59, heart rate 59, respiratory rate 18, saturating 98% on room air. GENERAL: There is no distress. SKIN: Normal. NECK: No lymphadenopathy. HEENT: Ocular movements conjugate. Oral cavity normal. LUNGS: With fairly clear breath sounds. HEART: S1 and S2. Regular rate. No S3 or S4. ABDOMEN: Soft, not distended or tender. No ascites. No bladder distention. EXTREMITIES: No joint inflammatory activity. Moves all extremities well. SARS-CoV-2 PCR on the not detected and on the not detected and those were deep samples. Antibody for SARS-CoV-2 was nonreactive on 02/02. White cell count is 10.9, hemoglobin 8.8, platelets 261, normal differential. D-dimer 2.54. Creatinine 0.76. CRP 9.66. She is currently on azithromycin, Rocephin, and Decadron. She had a CT of the chest with no pulmonary embolism and some infiltrates which could be considered possible for COVID. ASSESSMENT: Obesity, hypertension, respiratory symptoms of acute onset for the past 4 to 5 days, marked improvement since admission. The patient had 2 tests for COVID PCR, which were negative and then one antibody test negative, so it is possible that this represents just a community-acquired pneumonia of bacterial etiology, although her pretest Covid likelihood is at least 70%, so even after 2 pcr tests, the post test likelihood drops only to around 20-25%. She has not had any influenza test submitted yet and it is less likely. She declined repeating the influenza test. I think it would be safe to consider discharge planning on oral levofloxacin or doxycycline and then submit repeat COVID IgG serology in about 7 to 10 days and then I can follow her up in about 2 weeks in the clinic either in person or via video conference. Regarding Decadron, I guess she could finish a few more days of Decadron in the outpatient setting. I would not give her more than 5 days. Job ID: [id number] HANNAH
[2020-02-06] MEDS: Doxepin HCl 25 MG CAP PO SCH (22:00)
[2020-02-07 05:23] LABS: #Eosinphils 0.1 thou/uL (0.0-0.7); #Lymphocytes 3.9 thou/uL (1.20-3.40); #Monocytes 0.5 thou/uL (0.11-0.59); %Basophils 0.3 % (0.0-1.0); %Eosinophils 0.9 % (0.0-10.0); %Lymphocytes 33.5 % (21.0-51.0); %Monocytes 4.4 % (0.0-10.0); %Neutrophils 60.8 % (42.0-75.0); Hemoglobin 9.1 g/dL (12.0-16.0); Mean Corpuscular HGB CONC 33.2 g/dL (32.0-36.0); Mean Corpuscular Hemoglobin 26.3 pg (27.0-31.0); Mean Corpuscular Volume 79.1 fL (78.0-98.0); Mean Platelet Volume 7.6 fL (7.4-10.4); Platelet Count 285 thou/uL (130-400); RBC Distribution Width 14.2 % (11.5-14.5); Red Blood Cell (RBC) Count 3.47 mill/uL (4.20-5.40); White Blood Cell (WBC) Count 11.5 thou/uL (4.8-10.8)
[2020-02-07 05:41] LABS: Anion Gap 14 mmol/L (10-20); BUN (Urea Nitrogen) 15 mg/dL (7.0-18.7); Calc. Creatinine Clearance 202 mL/min (70-130); Calcium 7.4 mg/dL (7.8-10.44); Carbon Dioxide 21 mmol/L (22-29); Chloride 107 mmol/L (98-107); Estimated GFR-MDRD 84; Glucose 134 mg/dL (70-105); Sodium 139 mmol/L (136-145)
[2020-02-07] MEDS: Gabapentin 400 MG CAP PO SCH (09:27)
[2020-02-07] MEDS: Pantoprazole 40 MG GRANULES PACKET PO SCH ×2 (09:28→09:30)
[2020-02-07] MEDS: Azithromycin 250 MG TAB PO SCH (09:28)
[2020-02-07] MEDS: busPIRone HCl 10 MG TAB PO SCH (09:28)
[2020-02-07] MEDS: Dexamethasone 4 MG TAB PO SCH (09:29)
[2020-02-07] MEDS: Ascorbic Acid 500 mg Chewable Tablet PO SCH (09:29)
[2020-02-07] MEDS: Zinc Sulfate 220 MG CAP PO SCH (09:29)
[2020-02-07] MEDS: Enoxaparin Sodium 40 MG/0.4 ML SYRINGE SC SCH (09:30)
[2020-02-07] MEDS: cefTRIAXone\\ROCEPHIN 1 GM in Sodium Chloride 0.9% 100 ML IVPB SCH (09:38)
[2020-02-07 09:56] VITALS: BP 107/51; TEMP 98.3
[2020-02-07] MEDS: Venlafaxine HCl XR 75 MG CAP PO SCH (13:08)
--- NOTE | 2020-02-07 15:38 | PQF ---
CLINICAL DOCUMENTATION CLARIFICATION FORM: Dear Dr. Vickers Date: 02/07/2020 Please exercise your independent, professional judgment in responding to the clarification form. Clinical indicators are provided on the bottom of this form for your review. Please check appropriate box(es): Conflicting documentation was noted in the Medical Record; please clarify if patient is being treated/monitored for: [ X ] Pneumonia due to gram-negative bacteria [ X ] Pneumonia due to gram-positive bacteria [ ] Other diagnosis [ ] Unable to determine In addition, please specify: Present on Admission (POA): [ X ] Yes [ ] No [ ] Unable to determine For continuity of documentation, please document condition throughout progress notes and discharge summary. Thank You. To be completed by CDI/Coding staff for physician review: CLINICAL INDICATORS - SIGNS / SYMPTOMS/ LABS / RESULTS AND LOCATION IN EMR *02/05 PN (Helen) A/P: (2) Pneumonia type: due to other aerobic Gram-negative bacteria -Plan: 2. Pneumonia. Suspect gram-positive bacteria. *02/05 Consult (Cristopher): Assessment: pt had 2 tests for COVID PCR, which were negative and then one antibody test negative, so it is possible that this represents just a community- acquired pneumonia bacterial etiology RISK FACTORS / RESULTS AND LOCATION IN EMR H&P 02/02 (Seth) HPI: hx of ANGEL, HTN. 02/04 pn (Helen) A/P: Acute respiratory failure with hypoxia. Pneumonia TREATMENT / RESULTS AND LOCATION IN EMR MAR: Order 02/03: Rocephin 1 gm IV q 24 hr MAR: Order 02/03: Zithromax 500mg po Daily ID Consult 02/05 Thank you, Aleah Simons RN, BSN [email or web address] This is a permanent part of the Medical Record [facility]
--- NOTE | 2020-02-07 16:17 | PDOC.DS.DS ---
Provider - Provider Date of Admission: 02/03/20 00:23 Date of Discharge: 02/07/20 Admitting Provider: Tunde Coats Consultations: Infectious Disease Primary Care Physician: BLADIMIR KENNEY MD Course - Hospital Course Hospital Course: This is a 39-year-old woman whose medical history includes anxiety, obstructive sleep apnea, morbid obesity with a BMI of 50 who presented to the hospital with progressively worsening shortness of breath and cough. She apparently was concerned that she had an exposure at work to a coworker who may have had Covid. However her Covid screen here PCR was negative x2 and antibody also was negative. She did have evidence of pneumonia and was treated with IV antibiotics. Her cultures however has remained negative. She was followed through this visit by the ID services who helped in managing her symptoms. She also had a question about tuberculosis she was worried due to the color of her sputum. QuantiFERON TB test was obtained and this was an indeterminate study. However she has not had any symptoms of tuberculosis. She denied any fever, night sweats, weight loss and never been incarcerated. She is effectively ruled out for tuberculosis. She was treated with IV antibiotic for bacterial pne umonia related to mixed gram-negative and gram-positive's. She did well and was discharged home today in a stable condition. She will complete p.o. doxycycline as outpatient. Resuscitation Status: 02/03/20 11:28 Resuscitation Status Routine Co-Sign Provider: Resuscitation Status: FULL: Full Resuscitation - Labs Lab Results: 02/07/20 04:49 02/07/20 04:49 Abnormal Lab Results - Last 48 hrs 02/03/20 12:11: TB Test (QFT) Indeterminate A 02/06/20 05:17: Potassium 3.4 L, Chloride 108 H 02/06/20 05:17: WBC 10.9 H, RBC 3.37 L, Hgb 8.8 L, Hct 27.0 L, MCH 26.2 L, Neutrophils # 7.0 H, Monocytes # 0.6 H 02/07/20 04:49: Potassium 3.0 L, Carbon Dioxide 21 L, Calcium 7.4 L 02/07/20 04:49: WBC 11.5 H, RBC 3.47 L, Hgb 9.1 L, Hct 27.4 L, MCH 26.3 L, Neutrophils # 7.0 H, Lymphocytes # 3.9 H Microbiology - Entire Visit 02/05/20 13:30 Sputum Respiratory Culture - Preliminary 02/04/20 13:30 Nasopharyngeal swab Respiratory Virus Panel (PCR) - Final - Physical Exam Vitals: Vital Signs (12 hours) Temp Pulse Resp BP Pulse Ox 02/07/20 09:55 98.3 F 74 18 107/51 L 95 02/07/20 07:30 96 02/07/20 05:13 96 02/07/20 04:18 97.5 F L 66 16 100/50 L 96 Weight Admit Weight 283 lb 12.8 oz Weight 289 lb Physical Exam: The patient was seen and examined on the day of discharge. Problem - Problem (1) Acute respiratory failure with hypoxia Code(s): J96.01 - ACUTE RESPIRATORY FAILURE WITH HYPOXIA Status: Acute Plan: Resolved. (2) Pneumonia Code(s): J18.9 - PNEUMONIA, UNSPECIFIED ORGANISM Status: Acute Qualifiers: Pneumonia type: due to other aerobic Gram-negative bacteria Laterality: bilateral Lung location: lower lobe of lung Qualified Code(s): J15.6 - Pneumonia due to other Gram-negative bacteria Plan - Discharge Medications Prescriptions: Doxycycline [Vibramycin] 100 mg PO Q12HR #10 cap Home Medications: Medication Instructions Recorded Confirmed Type Doxepin HCl 150 mg PO HS 02/03/20 02/03/20 History Gabapentin 1,200 mg PO TID 02/03/20 02/03/20 History Metoprolol Succinate [Toprol XL] 100 mg PO HS 02/03/20 02/03/20 History Pantoprazole [Protonix] 40 mg PO DAILY 02/03/20 02/03/20 History QUEtiapine Fumarate [SEROquel] 200 mg PO HS 02/03/20 02/03/20 History Venlafaxine HCl [Effexor XR] 75 mg PO TID 02/03/20 02/03/20 History busPIRone HCl [Buspirone HCl] 20 mg PO BID 02/03/20 02/03/20 History Doxycycline [Vibramycin] 100 mg PO Q12HR #10 cap 02/07/20 Rx Allergies: No Known Allergies Allergy (Verified 02/03/20 03:11) - Discharge Instructions Discharge Instructions:: Please call to schedule a repeat COVID antibody test in 10 days wither with PCP or Dr. Nicholas' office. Your new prescriptions were sent electronically to the [facility] on in [place], [place]. Please arrange to pick-up these prescriptions upon discharge. Nourishment:: No Restrictions Therapies:: Not Applicable Equipment/Supplies:: Not Applicable IV Therapy:: Not Applicable - Follow up Plan Referrals: BLADIMIR KENNEY MD [Primary Care Provider] - 10 Days Harpreet Nicholas MD [Active] - 2-3 Weeks Disposition: HOME Quality - Care Measures CORE MEASURES:: N/A
== END 2020-02-07 14:24 | disposition home or self-care (01) | DRG 177 ==
LOC: ERS 22:20 → 2SW 02-03 00:23
PROVIDERS: ADMIT Internal Medicine; ATTEND Hospitalist
DX: J15.6 Pneumonia due to other Gram-negative bacteria (principal); J96.01 Acute respiratory failure with hypoxia; Z68.42 Body mass index [BMI] 45.0-49.9, adult; R04.2 Hemoptysis; I10 Essential (primary) hypertension; G47.33 Obstructive sleep apnea (adult) (pediatric); F41.9 Anxiety disorder, unspecified; F32.9 Major depressive disorder, single episode, unspecified; R77.8 Other specified abnormalities of plasma proteins; K21.9 Gastro-esophageal reflux disease without esophagitis; E66.01 Morbid (severe) obesity due to excess calories; E87.6 Hypokalemia; D63.8 Anemia in other chronic diseases classified elsewhere; Z90.49 Acquired absence of other specified parts of digestive tract; Z79.899 Other long term (current) drug therapy; Z98.51 Tubal ligation status; Z20.828 Contact with and (suspected) exposure to other viral communicable diseases
CPT/HCPCS: 36415; 71045; 71275; 80048; 80053; 82550; 82553; 82728; 83615; 83690; 83880; 84484; 84703; 85025; 85379; 85610; 85730; 86140; 86480; 86769; 87070; 87205; 87633; 87635; 93005; J0456; J0696; J1100; J1650; J3490; J8540; Q9967; U0003

== ENCOUNTER 2020-03-25 21:35 | Observation (INO) | payer BC ==
[2020-03-25] MEDS ORDERED: cefTRIAXone\\ROCEPHIN 1 GM VIAL ONE (22:09)
[2020-03-25] MEDS ORDERED: Acetaminophen 325 MG TAB ONE (22:17)
[2020-03-25 22:25] LABS: Mean Corpuscular HGB CONC 32.6 g/dL (32.0-36.0); Mean Corpuscular Volume 76.7 fL (78.0-98.0); Mean Platelet Volume 7.8 fL (7.4-10.4); Platelet Count 276 thou/uL (130-400); RBC Distribution Width 14.8 % (11.5-14.5); Red Blood Cell (RBC) Count 4.01 mill/uL (4.20-5.40)
[2020-03-25 22:39] LABS: Band 32 % (5-11); Lymphocytes 2 % (21-51); MDiff Complete? YES; Monocytes 4 % (0-10); Neutrophil 62 % (42-75)
[2020-03-25 22:40] LABS: ALT (SGPT) 12 U/L (8-55); AST (SGOT) 20 U/L (5-34); Albumin 3.9 g/dL (3.5-5.0); Alkaline Phosphatase 114 U/L (40-110); Anion Gap 15 mmol/L (10-20); BUN (Urea Nitrogen) 11 mg/dL (7.0-18.7); Bilirubin, Total 0.7 mg/dL (0.2-1.2); Calc. Creatinine Clearance 0 mL/min (70-130); Calcium 8.1 mg/dL (7.8-10.44); Carbon Dioxide 23 mmol/L (22-29); Chloride 100 mmol/L (98-107); Globulin 2.6 g/dL (2.4-3.5); Glucose 129 mg/dL (70-105); Potassium 4.3 mmol/L (3.5-5.1); Protein, Total 6.5 g/dL (6.0-8.3); Sodium 134 mmol/L (136-145)
[2020-03-25] MEDS ORDERED: Dexamethasone 10 MG/ML VIAL ONE (22:52)
[2020-03-25] MEDS ORDERED: Azithromycin 500 MG VIAL ONE (22:52)
--- NOTE | 2020-03-25 23:31 | RAD ---
EXAM: CHEST ONE VIEW HISTORY: Cough, dyspnea, difficulty breathing. COMPARISON: 02/02/2020 FINDINGS: Cardiac silhouette appears enlarged. Pulmonary vasculature is within normal limits. There is patchy p arenchymal opacity/consolidation seen in the right midlung zone and right lung base worrisome for pneumonia. The left lung is clear. No other interval change IMPRESSION: 1. Patchy parenchymal opacity and consolidation right midlung zone and right lung base worrisome for pneumonia. Follow-up to complete resolution is recommended. 2. Cardiomegaly.
[2020-03-25 23:49] LABS: Bilirubin Negative (Negative); Blood, Urine Negative (Negative); Clarity Clear (Clear); Glucose, Urine (Dipstick) Normal (Negative); Ketone, Urine Negative (Negative); Leukocyte Negative Leu/uL (Negative); Nitrite Negative (Negative); Protein, Urine (Dipstick) 20 mg/dL (Neg-Trace); Specific Gravity, Urine 1.024 (1.002-1.036); Urobilinogen Normal mg/dL (Less than 2); pH, Urine 5.5 (5.0-9.0)
[2020-03-25 23:54] LABS: SARS-CoV-2 NAA Rapid Test Not Detected (NotDetected)
--- NOTE | 2020-03-26 00:11 | CT ---
CT ANGIOGRAM THORAX WITH IV CONTRAST AND 3-D RECONSTRUCTIONS CLINICAL INDICATION: Headache, cough, fever, shortness of breath. COMPARISON: 02/02/2020 FINDINGS: Pulmonary arteries: No filling defects are seen in the pulmonary arteries to suggest a pulmonary embo phoebe. Aorta: The aorta is normal in caliber without evidence of an aortic dissection. Lungs: There are multiple reticulonodular densities seen throughout the right upper, right lower and right middle lobe with more dense area of consolidation present in the right middle lobe. The left lung is clear. Minimal right pleural effusion is present. The BRCA1 areas of consolidation in each lo wer lobe as well as scattered groundglass densities seen on prior study have resolved. Large airways appear patent. Mediastinum: No enlarged lymph nodes are seen by CT size criteria. Thyroid gland: Grossly within normal limits. Osseous structures: No suspicious lytic or sclerotic osseous lesion. Chest wall: No abnormality visualized. Upper abdomen: Postoperative changes of the stomach. IMPRESSION: 1. Consolidation right middle lobe worrisome for pneumonia with reticulonodular densities seen throug hout the right lung. Findings could be related to atypical infectious process. 2. Minimal right pleural effusion. 3. No CT evidence of a pulmonary embolus.
--- NOTE | 2020-03-26 01:17 | PDOC.HHP ---
Hospitalist HPI - History of Present Illness History of Present Illness: ADMISSION DATE: 03/26/2020 TIME OF ASSESSMENT: 0045 PRIMARY CARE PHYSICIAN: Davida at [facility] CHIEF COMPLAINT: Shortness of breath HPI: Patient is a 39-year-old female past medical history significant for obesity, sleep apnea, hypertension, pneumonia. She presents to the ER today after waking up feeling short of breath this afternoon. 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 She checked her pulse oximeter at home and she was 83% on room air and had a fever of 104.7. She denies contact with sick persons, GI upset, chest pain. The patient took Mucinex at home for her symptoms. Starting yesterday she had complaints of a headache but no other symptoms. She is now coughing up thick green sputum. She was admitted earlier this year in February for similar symptoms. She was tested multiple times for Covid and was negative each time along with her antibody test being negative. She was treated for bacterial pneumonia at that time and seen by the infectious disease physician. She is no longer on antibiotics at this time. ED COURSE: Vital Signs: Blood pressure 132/82, pulse 70, respiratory rate 20, temp 99.4, 100% on 2 Lpresented to ER at 90% on room air Today in the ER they completed lab work, CT angio, UA, Covid and influenza swab, chest x-ray. She was administered azithromycin 500 mg IV, dexamethasone 10 mg IV, Tylenol 650 mg oral, ceftriaxone 1 g IV, 1 L normal saline. PAST MEDICAL HISTORY: Obesity, sleep apnea using CPAP, hypertension, fibromyalgia PAST SURGICAL HISTORY: Appendectomy, , tummy tuck, LAP-BAND x2, gastric bypass, breast reduction, tubal ligation SOCIAL HISTORY: Patient lives at home with her family. She denies any alcohol, drug, tobacco use. FAMILY HISTORY: Noncontributory ALLERGIES: No known drug allergies CURRENT MEDICATIONS: Gabapentin 1200 mg 3 times a day Venlafaxine 75 mg once a day Dexopin 150 mg at night Metoprolol succinate 100 mg once a day Quetiapine 200 mg once a day Pantoprazole 40 mg once a day Buspirone 2 tablets twice a day Hospitalist ROS - Review of Systems Constitutional: reports: fever Respiratory: reports: cough, shortness of breath, sputum All other systems reviewed; all pertinent +/- noted in HPI/Subj Hospitalist History - Social History Alcohol: reports: None Drugs: reports: none - Exam General Appearance: NAD, awake alert Eye: PERRL ENT: normocephalic atraumatic Neck: supple Heart: RRR, no murmur, no gallops, no rubs, normal peripheral pulses Respiratory: normal chest expansion, no tachypnea, rhonchi Gastrointestinal: soft, non-tender, non-distended, normal bowel sounds Extremities: no edema Neurological: no focal deficits Musculoskeletal: normal tone, no muscle wasting Psychiatric: normal affect, normal behavior, A&O x 3 Hospitalist Results - Labs Result Diagrams: 03/25/20 22:06 03/25/20 22:06 Lab results: WBC 13.0 thou/uL (4.8-10.8) H 03/25/20 22:06 Hgb 10.0 g/dL (12.0-16.0) L 03/25/20 22:06 Hct 30.8 % (36.0-47.0) L 03/25/20 22:06 MCV 76.7 fL (78.0-98.0) L 03/25/20 22:06 Plt Count 276 thou/uL (130-400) 03/25/20 22:06 Band Neuts % (Manual) 32 % (5-11) H 03/25/20 22:06 Sodium 134 mmol/L (136-145) L 03/25/20 22:06 Potassium 4.3 mmol/L (3.5-5.1) 03/25/20 22:06 Chloride 100 mmol/L (98-107) 03/25/20 22:06 Carbon Dioxide 23 mmol/L (22-29) 03/25/20 22:06 BUN 11 mg/dL (7.0-18.7) 03/25/20 22:06 Creatinine 0.90 mg/dL (0.6-1.1) 03/25/20 22:06 Glucose 129 mg/dL (70-105) H 03/25/20 22:06 Lactic Acid 1.7 mmol/L (0.5-2.2) 03/25/20 22:06 Calcium 8.1 mg/dL (7.8-10.44) 03/25/20 22:06 Total Bilirubin 0.7 mg/dL (0.2-1.2) 03/25/20 22:06 AST 20 U/L (5-34) 03/25/20 22:06 ALT 12 U/L (8-55) 03/25/20 22:06 Alkaline Phosphatase 114 U/L (40-110) H 03/25/20 22:06 Troponin I Less than 0.010 ng/mL (< 0.028) 03/25/20 22:07 B-Natriuretic Peptide 86.2 pg/mL (0-100) 03/25/20 22:06 Serum Total Protein 6.5 g/dL (6.0-8.3) 03/25/20 22:06 Albumin 3.9 g/dL (3.5-5.0) 03/25/20 22:06 Urine Ketones Negative mg/dL (Negative) 03/25/20 23:35 Urine Blood Negative (Negative) 03/25/20 23:35 Urine Nitrite Negative (Negative) 03/25/20 23:35 Ur Leukocyte Esterase Negative Shantal/uL (Negative) 03/25/20 23:35 - EKG Interpretation EKG: SR, LVH 72bpm - Radiology Interpretation Chest x-ray Status: image reviewed by me, report reviewed by me Additional Comment: IMPRESSION: 1. Patchy parenchymal opacity and consolidation right midlung zone and right lung base worrisome for pneumonia. Follow-up to complete resolution is recommended. 2. Cardiomegaly. CT scan - chest Status: report reviewed by me Additional Comment: IMPRESSION: 1. Consolidation right middle lobe worrisome for pneumonia with reticulonodular densities seen throughout the right lung. Findings could be related to atypical infectious process. 2. Minimal right pleural effusion. 3. No CT evidence of a pulmonary embolus Hospitalist H&P A/P - Plan Plan: Acute respiratory failure with hypoxia Most likely secondary to pneumonia Continue O2 until able to wean off Pneumonia Continue IV antibiotics Trend labs in a.m. WBCs at 13, Covid and flu swab negative Hypertension Restart home medications once reconciled Monitor vital signs every 4 hours Obstructive sleep apnea May use home CPAP VTE prophylaxis in place with SCDs CODE STATUS: Full Surrogate decision-maker is her , Huseyin Patient and care discussed with Dr. Lindsay
[2020-03-26] MEDS ORDERED: Acetaminophen 325 MG TAB PO PRN (03:02)
[2020-03-26 03:11] VITALS: BMI 42.9
[2020-03-26 05:35] LABS: Anion Gap 15 mmol/L (10-20); BUN (Urea Nitrogen) 11 mg/dL (7.0-18.7); Calc. Creatinine Clearance 154 mL/min (70-130); Calcium 7.8 mg/dL (7.8-10.44); Carbon Dioxide 19 mmol/L (22-29); Chloride 106 mmol/L (98-107); Glucose 245 mg/dL (70-105); Potassium 4.3 mmol/L (3.5-5.1); Sodium 136 mmol/L (136-145)
[2020-03-26 06:52] LABS: Band 33 % (5-11); Hemoglobin 9.2 g/dL (12.0-16.0); Lymphocytes 2 % (21-51); MDiff Complete? YES; Mean Corpuscular HGB CONC 32.1 g/dL (32.0-36.0); Mean Corpuscular Hemoglobin 25.2 pg (27.0-31.0); Mean Corpuscular Volume 78.6 fL (78.0-98.0); Mean Platelet Volume 7.9 fL (7.4-10.4); Monocytes 2 % (0-10); Neutrophil 63 % (42-75); Platelet Count 258 thou/uL (130-400); RBC Distribution Width 14.8 % (11.5-14.5); Red Blood Cell (RBC) Count 3.65 mill/uL (4.20-5.40); White Blood Cell (WBC) Count 18.3 thou/uL (4.8-10.8)
[2020-03-26] MEDS ORDERED: FLU VACC QS2020-21(6MOS UP)/PF 60 MCG/0.5 ML SYRINGE IM ONE (09:00)
[2020-03-26] MEDS: Acetaminophen/Codeine 30-300mg Tablet PO PRN ×2 (16:29→21:06)
--- NOTE | 2020-03-26 17:13 | PDOC.BPN ---
- Brief Progress Note Encounter Date: 03/26/20 The patient was seen and examined. She is still complaining of productive cough and shortness of breath. Saturating well on 2 L nasal cannula. Continue ceftriaxone and azithromycin for right lower lobe community-acquired pneumonia. Follow CBC and BMP in the morning.
[2020-03-26] MEDS: Diabetic Tussin 200 MG/10 ML UDCUP PO PRN ×2 (17:27→21:53)
[2020-03-26] MEDS: cefTRIAXone\\ROCEPHIN 1 GM in Sodium Chloride 0.9% 100 ML IVPB SCH (21:53)
[2020-03-26] MEDS ORDERED: busPIRone HCl 10 MG TAB PO SCH (22:15)
[2020-03-26] MEDS ORDERED: Venlafaxine HCl XR 75 MG CAP PO SCH (22:15)
[2020-03-26] MEDS ORDERED: Gabapentin 400 MG CAP PO SCH (22:15)
[2020-03-26] MEDS: Azithromycin 500 MG in Sodium Chloride 0.9% 250 ML 250 ML IVPB SCH (22:23)
[2020-03-26] MEDS ORDERED: Doxepin HCl 25 MG CAP PO SCH (22:30)
[2020-03-27] MEDS: Acetaminophen/Codeine 30-300mg Tablet PO PRN ×3 (03:31→18:58)
[2020-03-27] MEDS: Diabetic Tussin 200 MG/10 ML UDCUP PO PRN ×3 (03:32→19:53)
[2020-03-27 05:50] LABS: Anion Gap 12 mmol/L (10-20); BUN (Urea Nitrogen) 10 mg/dL (7.0-18.7); Calc. Creatinine Clearance 195 mL/min (70-130); Calcium 8.2 mg/dL (7.8-10.44); Carbon Dioxide 23 mmol/L (22-29); Chloride 108 mmol/L (98-107); Glucose 102 mg/dL (70-105); Sodium 139 mmol/L (136-145)
[2020-03-27 06:06] LABS: Band 10 % (5-11); Lymphocytes 6 % (21-51); MDiff Complete? YES; Mean Corpuscular HGB CONC 31.9 g/dL (32.0-36.0); Mean Corpuscular Hemoglobin 24.9 pg (27.0-31.0); Mean Platelet Volume 8.2 fL (7.4-10.4); Monocytes 4 % (0-10); Neutrophil 80 % (42-75); Platelet Count 296 thou/uL (130-400); White Blood Cell (WBC) Count 16.4 thou/uL (4.8-10.8)
[2020-03-27] MEDS: Gabapentin 400 MG CAP PO SCH ×3 (09:09→20:26)
[2020-03-27] MEDS: busPIRone HCl 10 MG TAB PO SCH ×2 (09:10→20:21)
[2020-03-27] MEDS: Venlafaxine HCl XR 75 MG CAP PO SCH ×3 (09:10→20:21)
[2020-03-27] MEDS: Pantoprazole 40 MG GRANULES PACKET PO SCH (09:11)
--- NOTE | 2020-03-27 15:00 | PDOC.HOSPP ---
- Subjective Encounter Date: 03/27/20 Encounter Time: 11:30 Subjective: Patient seen for follow-up regarding acute hypoxic respiratory failure. Continues to need supplemental oxygen. - Objective Vital Signs & Weight: Vital Signs (12 hours) Temp Pulse Resp BP Pulse Ox 03/27/20 11:30 98.2 F 65 18 123/76 96 03/27/20 07:54 97.8 F 61 18 110/62 94 L 03/27/20 03:22 98.6 F 63 18 117/80 96 Weight Weight 250 lb I&O: 03/26/20 03/27/20 03/28/20 06:59 06:59 06:59 Intake Total 420 2050 Balance 420 2049 Result Diagrams: 03/27/20 05:08 03/27/20 05:08 Additional Labs: Labs and MAR reviewed by or Hospitalist ROS - Review of Systems Respiratory: reports: cough, SOB with excertion, sputum. denies: dry, shortness of breath, hemoptysis, pleuritic pain, wheezing Cardiovascular: denies: chest pain, palpitations, orthopnea, paroxysmal noc. dyspnea, edema, light headedness - Medication Medications: Active Medications Generic Name Dose Route Start Last Admin Trade Name Freq PRN Reason Stop Dose Admin Acetaminophen 650 mg 03/26/20 03:02 03/26/20 12:04 Acetaminophen 325 Mg Tab PO 650 mg Q4H PRN Administration Headache/Fever/Mild Pain (1-3) Acetaminophen/Codeine Phosphate 1 tab 03/26/20 15:22 03/27/20 09:16 Acetaminophen/Codeine 30-300mg Tablet PO 1 tab Q4H PRN Administration Pain 4-6 Buspirone HCl 20 mg 03/27/20 09:00 03/27/20 09:10 Buspirone Hcl 10 Mg Tab PO 20 mg BID RENETTA Administration Gabapentin 1,200 mg 03/27/20 09:00 03/27/20 09:09 Gabapentin 400 Mg Cap PO 1,200 mg TID RENETTA Administration Guaifenesin 200 mg 03/26/20 15:21 03/27/20 11:34 Diabetic Tussin 200 Mg/10 Ml Udcup PO 200 mg Q4H PRN Administration Cough Ceftriaxone Sodium 1 gm/ 100 mls @ 200 mls/hr 03/26/20 22:00 03/26/20 21:53 Sodium Chloride IVPB 100 mls 2200 RENETTA Administration Azithromycin 500 mg/ Sodium 250 mls @ 250 mls/hr 03/26/20 23:00 03/26/20 22:23 Chloride IVPB 250 mls 2300 RENETTA Administration Pantoprazole Sodium 40 mg 03/27/20 09:00 03/27/20 09:11 Pantoprazole 40 Mg Granules Packet PO Not Given DAILY RENETTA Venlafaxine HCl 75 mg 03/27/20 09:00 03/27/20 09:10 Venlafaxine Hcl Xr 75 Mg Cap PO 75 mg TID RENETTA Administration - Exam General - other findings: Morbid obesity Eye: anicteric sclera ENT: normocephalic atraumatic, no oropharyngeal lesions Neck: supple Heart: RRR Respiratory: CTAB Gastrointestinal: soft, non-tender Skin: no rashes Psychiatric: normal affect, normal behavior Hosp A/P - Plan -Assessment/plan Acute respiratory failure with hypoxia Secondary to community-acquired pneumonia COVID-19 test negative Supplemental oxygen as needed Pneumonia Continue IV azithromycin and ceftriaxone Hypertension Controlled and stable Obstructive sleep apnea CPAP while asleep
[2020-03-27] MEDS ORDERED: Doxepin HCl 25 MG CAP PO SCH (21:00)
[2020-03-27] MEDS: cefTRIAXone\\ROCEPHIN 1 GM in Sodium Chloride 0.9% 100 ML IVPB SCH (22:00)
[2020-03-28] MEDS: Azithromycin 500 MG in Sodium Chloride 0.9% 250 ML 250 ML IVPB SCH (00:12)
[2020-03-28 05:26] LABS: #Basophils 0.1 thou/uL (0.0-0.2); #Eosinphils 0.4 thou/uL (0.0-0.7); #Lymphocytes 3.7 thou/uL (1.20-3.40); #Monocytes 0.5 thou/uL (0.11-0.59); #Neutrophils 6.1 thou/uL (1.40-6.50); %Basophils 0.7 % (0.0-1.0); %Eosinophils 3.4 % (0.0-10.0); %Lymphocytes 34.6 % (21.0-51.0); %Monocytes 4.6 % (0.0-10.0); %Neutrophils 56.7 % (42.0-75.0); Mean Corpuscular HGB CONC 32.2 g/dL (32.0-36.0); Mean Corpuscular Hemoglobin 25.2 pg (27.0-31.0); Mean Corpuscular Volume 78.2 fL (78.0-98.0); Mean Platelet Volume 8.2 fL (7.4-10.4); Platelet Count 272 thou/uL (130-400); RBC Distribution Width 15.3 % (11.5-14.5); Red Blood Cell (RBC) Count 3.57 mill/uL (4.20-5.40); White Blood Cell (WBC) Count 10.8 thou/uL (4.8-10.8)
[2020-03-28 05:46] LABS: Anion Gap 11 mmol/L (10-20); BUN (Urea Nitrogen) 10 mg/dL (7.0-18.7); Calc. Creatinine Clearance 174 mL/min (70-130); Calcium 8.1 mg/dL (7.8-10.44); Carbon Dioxide 25 mmol/L (22-29); Chloride 107 mmol/L (98-107); Glucose 133 mg/dL (70-105); Sodium 139 mmol/L (136-145)
[2020-03-28 07:19] VITALS: TEMP 98
[2020-03-28] MEDS: Pantoprazole 40 MG GRANULES PACKET PO SCH (09:02)
[2020-03-28] MEDS: busPIRone HCl 10 MG TAB PO SCH (09:02)
[2020-03-28] MEDS: Venlafaxine HCl XR 75 MG CAP PO SCH ×2 (09:03→18:07)
--- NOTE | 2020-03-28 09:56 | PDOC.EVN ---
Event Note - Event Note Event Note: I initiated transfer to [facility] yesterday because we are out of network for [facility]. The transfer was declined by [facility].
[2020-03-28] MEDS ORDERED: Cefdinir 300 MG CAP PO SCH ×2 (11:00→21:00)
[2020-03-28] MEDS ORDERED: Doxycycline 100 MG CAP PO SCH ×2 (11:00→21:00)
[2020-03-28] MEDS: Gabapentin 400 MG CAP PO SCH ×2 (11:22→18:06)
[2020-03-28] MEDS: Diabetic Tussin 200 MG/10 ML UDCUP PO PRN (11:49)
--- NOTE | 2020-03-28 13:55 | PDOC.DS.DS ---
Provider - Provider Date of Admission: 03/26/20 00:58 Date of Discharge: 03/28/20 Admitting Provider: Isiah Lindsay MD Primary Care Physician: BLADIMIR KENNEY MD Course - Hospital Course Hospital Course: Discharge diagnosis: 1. Acute hypoxic respiratory failure 2. Community-acquired pneumonia 3. Right middle lobe pneumonia 4. COVID-19 PCR test negative Hospital course: Patient is a pleasant 39-year-old lady who was admitted to the hospital on March 26, 2020 for acute hypoxic respiratory failure secondary to right middle lobe pneumonia. Improved with intravenous antibiotics. She has been stepdown to oral antibiotics and is being discharged home in a stable condition. Many thanks for allowing me to participate in your patient's care. Please feel free to contact me with any questions or concerns. Discharge destination: Home Resuscitation Status: 03/26/20 02:04 Resuscitation Status Routine Co-Sign Provider: Resuscitation Status: FULL: Full Resuscitation Discussed with: pt - Labs Lab Results: 03/28/20 05:05 03/28/20 05:05 Abnormal Lab Results - Last 48 hrs 03/27/20 05:08: Chloride 108 H 03/27/20 05:08: WBC 16.4 H, RBC 3.60 L, Hgb 9.0 L, Hct 28.1 L, MCH 24.9 L, MCHC 31.9 L, RDW 15.0 H, Neutrophils % (Manual) 80 H, Lymphocytes % (Manual) 6 L 03/28/20 05:05: RBC 3.57 L, Hgb 9.0 L, Hct 27.9 L, MCH 25.2 L, RDW 15.3 H, Lymphocytes # 3.7 H Microbiology - Entire Visit 03/25/20 23:35 Urine voided Urine Culture - Final 03/25/20 22:06 Venous blood - Left Arm Blood Culture - Preliminary NO GROWTH AT 48 HOURS 03/25/20 22:05 Venous blood - Right Hand Blood Culture - Preliminary NO GROWTH AT 48 HOURS - Physical Exam Vitals: Vital Signs (12 hours) Temp Pulse Resp BP Pulse Ox 03/28/20 10:57 72 18 125/78 94 L 03/28/20 09:04 97 03/28/20 07:16 98 F 57 L 16 137/76 98 03/28/20 03:52 98.1 F 60 16 113/71 98 Weight Weight 250 lb Physical Exam: The patient was seen and examined on the day of discharge. Patient denies chest pain or shortness of breath. Vital signs are stable. S1 and S2 are heard. Lungs are clear to auscultation bilaterally. Plan - Discharge Medications Prescriptions: Cefdinir [Omnicef] 300 mg PO BID #16 cap Doxycycline [Vibramycin] 100 mg PO BID #16 cap Home Medications: Medication Instructions Recorded Confirmed Type Doxepin HCl 150 mg PO HS 02/03/20 03/26/20 History Gabapentin 1,200 mg PO TID 02/03/20 03/26/20 History Metoprolol Succinate [Toprol XL] 100 mg PO HS 02/03/20 03/26/20 History Pantoprazole [Protonix] 40 mg PO DAILY 02/03/20 03/26/20 History QUEtiapine Fumarate [SEROquel] 200 mg PO HS 02/03/20 03/26/20 History Venlafaxine HCl [Effexor XR] 75 mg PO TID 02/03/20 03/26/20 History busPIRone HCl [Buspirone HCl] 20 mg PO BID 02/03/20 03/26/20 History Cefdinir [Omnicef] 300 mg PO BID #16 cap 03/28/20 Rx Doxycycline [Vibramycin] 100 mg PO BID #16 cap 03/28/20 Rx Allergies: No Known Allergies Allergy (Verified 03/26/20 03:12) - Follow up Plan Referrals: BLADIMIR KENNEY MD [Primary Care Provider] - 3 Days Disposition: HOME Quality - Care Measures CORE MEASURES:: N/A
[2020-03-28 14:46] VITALS: BP 107/64
[2020-03-28] MEDS ORDERED: FLU VACC QS2020-21(6MOS UP)/PF 60 MCG/0.5 ML SYRINGE IM ONE (16:01)
== END 2020-03-28 19:20 | disposition home or self-care (01) ==
LOC: ERS 21:35 → SURG B 03-26 00:58
PROVIDERS: ADMIT Student in an Organized Health Care Education/Training Program; ATTEND Internal Medicine
DX: J18.9 Pneumonia, unspecified organism (principal); J96.01 Acute respiratory failure with hypoxia; J90 Pleural effusion, not elsewhere classified; I51.7 Cardiomegaly; E66.9 Obesity, unspecified; G47.33 Obstructive sleep apnea (adult) (pediatric); M79.7 Fibromyalgia; Z68.41 Body mass index [BMI] 40.0-44.9, adult; Z79.899 Other long term (current) drug therapy; Z20.828 Contact with and (suspected) exposure to other viral communicable diseases
CPT/HCPCS: 0240U; 36415; 71045; 71275; 80048; 80053; 81003; 83605; 83880; 84484; 85025; 85379; 87040; 87086; 90471; 90662; 90732; 93005; 96365; 96366; 96367; 96375; G0008; G0009; G0378; J0456; J0696; J1100; J3490; J7050; Q9967